=== PATIENT | male | born 1985 | race Hispanic/Latino ===

== ENCOUNTER 2022-08-16 18:47 | Emergency (ER) | payer OTHER | END 2022-08-16 20:44 | disposition home or self-care (01) | LOC: MADERS 18:47 | DX: S83.92XA Sprain of unspecified site of left knee, initial encounter (principal); W01.0XXA Fall on same level from slipping, tripping and stumbling without subsequent striking against object, initial encounter; Y92.010 Kitchen of single-family (private) house as the place of occurrence of the external cause ==

== ENCOUNTER 2023-08-07 09:21 | Emergency (ER) | payer OTHER ==
[2023-08-07 10:06] LABS: ALT (SGPT) 38 U/L (8-55); AST (SGOT) 58 U/L (5-34); Albumin 4.4 g/dL (3.5-5.0); Alkaline Phosphatase 83 U/L (40-110); Anion Gap 20 mmol/L (10-20); BUN (Urea Nitrogen) 9 mg/dL (8.9-20.6); Bilirubin, Total 0.7 mg/dL (0.2-1.2); Calc. Creatinine Clearance 0 mL/min (70-130); Carbon Dioxide 26 mmol/L (22-29); Chloride 100 mmol/L (98-107); Estimated GFR 120; Globulin 3.3 g/dL (2.4-3.5); Glucose 143 mg/dL (70-105); Magnesium 2.2 mg/dL (1.6-2.6); Potassium 3.7 mmol/L (3.5-5.1); Protein, Total 7.7 g/dL (6.0-8.3); Sodium 142 mmol/L (136-145)
[2023-08-07 10:07] LABS: Acetaminophen Less than 10 mcg/mL (10.0-30.0); Alcohol 303.6 mg/dL (Less than 10); Lipase 51 U/L (8-78); Salicylate Less than 8.0 mg/dL (15.0-30.0)
[2023-08-07 10:13] LABS: #Basophils 0.1 thou/uL (0.0-0.2); #Lymphocytes 2.2 thou/uL (1.20-3.40); #Monocytes 0.3 thou/uL (0.11-0.59); #Neutrophils 2.7 thou/uL (1.40-6.50); %Basophils 1.2 % (0.0-1.0); %Eosinophils 0.4 % (0.0-10.0); %Lymphocytes 42.4 % (21.0-51.0); %Monocytes 4.8 % (0.0-10.0); %Neutrophils 51.2 % (42.0-75.0); Hematocrit 50.6 % (42.0-52.0); Hemoglobin 17.3 g/dL (14.0-18.0); Mean Corpuscular HGB CONC 34.2 g/dL (32.0-36.0); Mean Corpuscular Hemoglobin 30.8 pg (27.0-31.0); Mean Platelet Volume 9.6 fL (7.4-10.4); Platelet Count 92 10x3/uL (130-400); RBC Distribution Width 11.4 % (11.5-14.5); Red Blood Cell (RBC) Count 5.63 mill/uL (4.70-6.10); White Blood Cell (WBC) Count 5.2 10x3/uL (4.8-10.8)
[2023-08-07 10:14] LABS: Platelet Adequacy Comment Appears Decreased
[2023-08-07 10:50] LABS: Amphetamine Not Detected (NotDetected); Barbiturates Screen Not Detected (NotDetected); Benzodiazepine Screen Not Detected (NotDetected); Cocaine Metabolite Screen Not Detected (NotDetected); Methadone Not Detected (NotDetected); Methamphetamine Not Detected (NotDetected); Opiate Screen Not Detected (NotDetected); Oxycodone Screen Not Detected (NotDetected); Phencyclidine (PCP) Not Detected (NotDetected); THC/Cannabinoid Screen Not Detected (NotDetected); Tricyclic Screen Not Detected (NotDetected)
[2023-08-07] MEDS ORDERED: Sodium Chloride 0.9% 1,000 ML BAG ONE (13:48)
== END 2023-08-07 10:53 | disposition home or self-care (01) ==
LOC: MADERS 09:21
DX: F10.129 Alcohol abuse with intoxication, unspecified (principal); D69.6 Thrombocytopenia, unspecified; R53.1 Weakness; E11.9 Type 2 diabetes mellitus without complications; I10 Essential (primary) hypertension; Z79.84 Long term (current) use of oral hypoglycemic drugs
CPT/HCPCS: 70450; 80053; 80306; 80307; 83690; 83735; 83880; 85025; 93005; 96360; J7050

== ENCOUNTER 2024-07-09 10:50 | Emergency (ER) | payer OTHER ==
[2024-07-09] MEDS ORDERED: Sodium Chloride 0.9% 1,000 ML ONE (11:13)
[2024-07-09] MEDS ORDERED: Diazepam 10 MG/2 ML SYRINGE ONE ×3 (11:20→13:08)
[2024-07-09 11:33] LABS: INR-International Normal Ratio 1.3; Prothrombin Time 16.2 sec (12.0-14.7)
[2024-07-09 11:34] LABS: PTT 35.7 sec (22.9-36.1)
[2024-07-09 11:35] LABS: #Basophils 0.1 thou/uL (0.0-0.2); #Lymphocytes 1.1 thou/uL (1.20-3.40); #Monocytes 0.6 thou/uL (0.11-0.59); #Neutrophils 10.1 thou/uL (1.40-6.50); %Basophils 0.7 % (0.0-1.0); %Eosinophils 0.3 % (0.0-10.0); %Lymphocytes 9.1 % (21.0-51.0); %Monocytes 5.4 % (0.0-10.0); %Neutrophils 84.5 % (42.0-75.0); Hematocrit 45.3 % (42.0-52.0); MDiff Complete? YES; Macrocytosis SLIGHT = 6-15 cells (100X) (0-5/hpf); Mean Corpuscular HGB CONC 33.1 g/dL (32.0-36.0); Mean Corpuscular Volume 102.4 fl (78.0-98.0); Mean Platelet Volume 13.1 fL (7.4-10.4); Platelet Adequacy Comment Appears Decreased; Platelet Count 56 10x3/uL (130-400); RBC Distribution Width 11.3 % (11.5-14.5); Red Blood Cell (RBC) Count 4.42 mill/uL (4.70-6.10); White Blood Cell (WBC) Count 11.9 10x3/uL (4.8-10.8)
[2024-07-09 11:40] LABS: ALT (SGPT) 40 U/L (8-55); AST (SGOT) 114 U/L (5-34); Albumin 3.5 g/dL (3.5-5.0); Alkaline Phosphatase 161 U/L (40-110); Anion Gap 24 mmol/L (10-20); BUN (Urea Nitrogen) Less than 4 mg/dL (8.9-20.6); Bilirubin, Total 1.7 mg/dL (0.2-1.2); Calc. Creatinine Clearance 0 mL/min (70-130); Calcium 8.8 mg/dL (7.8-10.44); Carbon Dioxide 16 mmol/L (22-29); Chloride 95 mmol/L (98-107); Estimated GFR 123; Globulin 4.4 g/dL (2.4-3.5); Glucose 170 mg/dL (70-105); Potassium 3.6 mmol/L (3.5-5.1); Protein, Total 7.9 g/dL (6.0-8.3); Sodium 131 mmol/L (136-145)
[2024-07-09 11:41] LABS: Acetaminophen Less than 10 mcg/mL (Less than 10); Alcohol Less than 10.0 mg/dL (Less than 10); Salicylate Less than 8.0 mg/dL (Less than 8.0)
[2024-07-09 11:42] LABS: Troponin I Less than 0.010 ng/mL (< 0.028)
[2024-07-09] MEDS ORDERED: hydrALAZINE 20 MG/ML VIAL ONE (12:59)
[2024-07-09] MEDS ORDERED: Multivit, Adult Inj 10 ML VIAL ONE (13:09)
[2024-07-09] MEDS ORDERED: Folic Acid 5 MG/ML MDV ONE (13:09)
[2024-07-09] MEDS ORDERED: Dextrose 5 %-0.45 % NaCl 1,000 ML ONE (13:09)
[2024-07-09] MEDS ORDERED: Thiamine HCl 200 MG/2 ML VIAL ONE (13:10)
[2024-07-09 13:29] LABS: Magnesium 1.8 mg/dL (1.6-2.6)
== END 2024-07-09 13:48 | disposition short-term general hospital (02) ==
LOC: MADERS 10:50
DX: F10.230 Alcohol dependence with withdrawal, uncomplicated (principal); R56.9 Unspecified convulsions; D69.6 Thrombocytopenia, unspecified; E11.9 Type 2 diabetes mellitus without complications; I10 Essential (primary) hypertension; Z79.84 Long term (current) use of oral hypoglycemic drugs; Z55.6 Problems related to health literacy
CPT/HCPCS: 36415; 70450; 71045; 80053; 80307; 83735; 84484; 85025; 85610; 85730; 93005; 96361; 96374; 96375; 96376; J0360; J3360; J3411; J7030; J7042